=== PATIENT | female | born 1950 | race Two or more races ===

== ENCOUNTER 2019-12-17 18:31 | Inpatient (IN) | payer MEDICARE, BC ==
[~2019-12-17] VITALS: Ht 153.7 cm; Wt 74.8 kg
--- NOTE | 2019-12-17 19:17 | NUR ---
PT CAME TO ER BED 9 C/O FEVER. PT STATES THAT SHE HAS FEVER FOR OVER HALF A DAY. TEMPERATURE CHECKED AT 99.3. NATALYA PAVON NOTIFIED. AAOX4. NO SOB. BREATHING EVENLY AND UNLABORED ON ROOM AIR. CONNECTED TO MONITOR.
--- NOTE | 2019-12-17 19:18 | NUR ---
LIBRADO HOANG AT BEDSIDE FOR EVAL
--- NOTE | 2019-12-17 19:22 | NUR ---
RESEARCH CONTRACTS SUPERVISOR AT BEDSIDE FOR BLOOD DRAW
--- NOTE | 2019-12-17 19:22 | NUR ---
FLU SWAB SAMPLE TAKEN AND SENT TO LAB
--- NOTE | 2019-12-17 19:23 | NUR ---
URINE COLLECTED AND SENT TO LAB
[2019-12-17 19:26] LABS: BASOPHILS # (AUTO) 0.1 /CMM (0.0-0.2); BASOPHILS % (AUTO) 0.5 % (0.0-2.0); HEMATOCRIT 30 % (33-45); HEMOGLOBIN 9.4 g/dL (11.5-14.8); LYMPHOCYTES # (AUTO) 0.7 /CMM (0.8-4.8); MEAN CORPUSCULAR HGB CONC 31 g/dl (31.0-36.0); MEAN CORPUSCULAR VOLUME 79 fL (82-100); MONOCYTES # (AUTO) 1.5 /CMM (0.1-1.30); MONOCYTES % (AUTO) 9.2 % (2.0-12.0); NEUTROPHILS # (AUTO) 14.5 /CMM (1.8-8.9); NEUTROPHILS % (AUTO) 86.3 % (43.0-81.0); PLATELET COUNT (AUTO) 186 /CMM (150-450); WHITE BLOOD COUNT (AUTO) 16.8 K/uL (4.3-11.0)
[2019-12-17] MEDS ORDERED: ACETAMINOPHEN ES 500 MG TABLET ONE (19:27)
[2019-12-17] MEDS ORDERED: ACETAMINOPHEN ES 500 MG TABLET PO ONE (19:30)
[2019-12-17 19:37] LABS: CALCIUM, SERUM 9.4 mg/dL (8.5-10.1); CREATININE 1.9 mg/dL (0.6-1.3); POTASSIUM 4.4 mmol/L (3.5-5.1)
[2019-12-17 19:37] LABS: APPEARANCE,URINE Cloudy (CLEAR); BILIRUBIN,URINE Negative (NEGATIVE); BLOOD, URINE Large Ery/uL (NEGATIVE); COLOR,URINE Yellow (YELLOW); KETONES,URINE Negative (NEGATIVE); LEUKOCYTE ESTERASE ,URINE Large (NEGATIVE); NITRITE, URINE Positive (NEGATIVE); PROTEIN,URINE >=300 mg/dl (NEGATIVE); UGLUCOSE Negative (NEGATIVE); UROBILINOGEN,URINE 0.2 EU/dL (0.2)
[2019-12-17 19:42] LABS: ALBUMIN 3.5 g/dL (3.4-5.0); BILIRUBIN,DIRECT 0.2 mg/dL (0.0-0.2); BILIRUBIN,TOTAL 0.9 mg/dL (0.2-1.0); TOTAL PROTEIN, SERUM 7.6 g/dL (6.4-8.2)
[2019-12-17 19:50] LABS: BACTERIA,URINE 4+ /HPF (None Seen); RBC,URINE 51-80 /HPF (0-2); SQUAMOUS EPITHELIAL CELL,UR Few /HPF (None Seen); WBC,URINE TOO NUMEROUS TO COUN /HPF (0-3)
[2019-12-17] MEDS ORDERED: CEFTRIAXONE 1GM BAG (ER ONLY) 1 GM/50 ML PIGGYBACK IV ONE (20:00)
[2019-12-17] MEDS ORDERED: CEFTRIAXONE 1GM BAG (ER ONLY) 50 ML IV ONE (20:10)
--- NOTE | 2019-12-17 21:08 | NUR ---
CALLED FOR MS BED
--- NOTE | 2019-12-17 21:15 | NUR ---
RECIEVED BED 208-1
[2019-12-17] MEDS ORDERED: IV NS 0.9% 1,000 ML BAG IV ONE ×2 (21:30)
--- NOTE | 2019-12-17 21:35 | NUR ---
REPORT GIVEN TO ALBERT BUTTS FOR PRAKASH.
[2019-12-17 21:55] VITALS: BP 133/65
--- NOTE | 2019-12-17 21:55 | NUR ---
PATIENT CAME FROM ER ACCOMPANIED BY THE . PATIENT IS A/O X4. NO COMPLAIN OF PAIN. WITH OSTOMY BAG INTACT DRAINING TO A CLOUDY YELLOW URINE OUTPUT PATIENT EMPTIED THE BAG. V/S TAKEN BY COLIN ODONNELL AND RECORDED, AFEBRILE, VITALS STABLE. SKIN IS INTACT.
[2019-12-17] MEDS ORDERED: ONDANSETRON HCL/PF 4 MG/2 ML VIAL IVP PRN (22:00)
[2019-12-17] MEDS ORDERED: MORPHINE SULFATE INJ 2 MG/ML DISP.SYRIN IV PRN (22:00)
[2019-12-17] MEDS ORDERED: HYDROCODONE/APAP 5/325MG 1 EACH TABLET PO PRN (22:00)
[2019-12-17] MEDS ORDERED: VALS40TA12 PO (22:43)
[2019-12-18] MEDS: IV NS 0.9% 1,000 ML IV PRN ×2 (00:28→10:48)
--- NOTE | 2019-12-18 00:39 | NUR ---
PATIENT'S CONNECTED THE OSTOMY BAG TO THE URINARY BAG.
[2019-12-18 06:17] LABS: BASOPHILS # (AUTO) 0.1 /CMM (0.0-0.2); BASOPHILS % (AUTO) 0.4 % (0.0-2.0); EOSINOPHILS % (AUTO) 0.1 % (0.0-6.0); HEMATOCRIT 27 % (33-45); HEMOGLOBIN 8.6 g/dL (11.5-14.8); LYMPHOCYTES # (AUTO) 0.9 /CMM (0.8-4.8); LYMPHOCYTES % (AUTO) 5.2 % (20.0-44.0); MEAN CORPUSCULAR HGB CONC 32 g/dl (31.0-36.0); MEAN CORPUSCULAR VOLUME 78 fL (82-100); MONOCYTES # (AUTO) 1.7 /CMM (0.1-1.30); MONOCYTES % (AUTO) 9.5 % (2.0-12.0); NEUTROPHILS # (AUTO) 14.9 /CMM (1.8-8.9); NEUTROPHILS % (AUTO) 84.8 % (43.0-81.0); PLATELET COUNT (AUTO) 161 /CMM (150-450); RED BLOOD CELL COUNT(AUTO) 3.48 MIL/uL (4.0-5.2); WHITE BLOOD COUNT (AUTO) 17.6 K/uL (4.3-11.0)
[2019-12-18 06:38] LABS: CALCIUM, SERUM 8.7 mg/dL (8.5-10.1); CREATININE 1.7 mg/dL (0.6-1.3); MAGNESIUM 1.6 mg/dL (1.8-2.4); PHOSPHORUS 3.2 mg/dL (2.5-4.9); POTASSIUM 4.4 mmol/L (3.5-5.1)
--- NOTE | 2019-12-18 06:41 | NUR ---
MS RN CLOSING NOTES: PATIENT IS RESTING IN BED, A/O X4. NO COMPLAIN OF PAIN DURING SHIFT. NO SOB NOTED. VITALS STABLE. AFEBRILE. RESTED THROUGHOUT THE NIGHT. WITH UROSTOMY BAG CONNECTED TO THE URINE BAG INTACT. CALL LIGHT WITHIN REACH. BED IN LOWEST AND LOCKED POSITION.
[2019-12-18 06:55] LABS: THYROID STIMULATING HORMONE 3.214 uIU/mL (0.358-3.74)
--- NOTE | 2019-12-18 07:21 | NUR ---
MS RN OPENING NOTES RECEIVED PATIENT AWAKE IN BED IN NO ACUTE SIGNS OF DISTRESS. A/O X 4. ABLE TO MAKE NEEDS KNOWN, DENIES PAIN OR ANY DISCOMFORTS AT THIS TIME. ON ROOM AIR, BREATHING EVEN AND UN LABORED. IV ACCESS ON RIGHT LOWER LEG G #22 INTACT AND PATENT, IVF OF NS @ 100ML/HR INFUSING WELL, NO S/S OF INFILTRATIONS NOTED. UROSTOMY BAG IN PLACE WITH CLEAR YELLOW URINE DRAINING TO URINARY BAG AT BEDSIDE. CALL LIGHT WITHIN REACH. BED IN LOWEST AND LOCKED POSITION. WILL CONTINUE TO MONITOR
[2019-12-18] MEDS: PANTOPRAZOLE 40 MG TABLET.DR PO SCH (07:58)
[2019-12-18] MEDS: ACETAMINOPHEN 325 MG TABLET PO PRN (07:58)
[2019-12-18 08:00] VITALS: BP 161/57
--- NOTE | 2019-12-18 08:02 | NUR ---
RN NOTES PT NOTED WITH ELEVATED TEMP OF 102.7F, PRN TYLENOL 650MG PO GIVEN. COOLING MEASURES DONE. DR PRASAD ON UNIT WITH ORDERS TO COLLECT URINE FOR U/A AND BLOOD WORKS FOR TOMORROW. WILL CONTINUE TO MONITOR.
--- NOTE | 2019-12-18 10:26 | NUR ---
RN NOTES PT SEEN EARLIER BY PA OF DR NEWELL AND INFORMED HER REGARDING PT HAVING HIGH FEVER. DR NEWELL CAME TO UNIT AND SPOKE TO PT AND . MD EXPLAINED PLAN OF CARE AND CHANGED IV ATB TO MEROPENEM IV . WILL CONTINUE TO MONITOR.
[2019-12-18] MEDS ORDERED: MEROPENEM 1 G in IV NS 0.9% 100 ML IV SCH ×2 (10:30→10:46)
[2019-12-18] MEDS ORDERED: Magnesium 1GM/D5W 100ML PREMIX 100 ML IV SCH (10:36)
[2019-12-18] MEDS ORDERED: MEROPENEM 500 MG in IV NS 0.9% 50 ML IV ONE (11:00)
--- NOTE | 2019-12-18 11:21 | NUR ---
RN NOTES URINE SPECIMEN COLLECTED. CALLED LAB TO DISTRIBUTION OPERATIONS SUPERVISOR SPECIMEN.
[2019-12-18] MEDS ORDERED: MEPERIDINE HCL/PF 100 MG/ML DISP.SYRIN IV ONE (13:30)
[2019-12-18 14:08] LABS: CREATININE, URINE 41.9 MG/DL (30.0-125.0)
[2019-12-18 14:10] LABS: APPEARANCE,URINE SL CLOUDY (CLEAR); BILIRUBIN,URINE NEGATIVE (NEGATIVE); BLOOD, URINE MODERATE Ery/uL (NEGATIVE); COLOR,URINE YELLOW (YELLOW); KETONES,URINE NEGATIVE (NEGATIVE); LEUKOCYTE ESTERASE ,URINE MODERATE (NEGATIVE); NITRITE, URINE NEGATIVE (NEGATIVE); PROTEIN,URINE TRACE mg/dl (NEGATIVE); UGLUCOSE NEGATIVE (NEGATIVE); UROBILINOGEN,URINE 0.2 EU/dL (0.2)
--- NOTE | 2019-12-18 14:16 | NUR ---
RN NOTES PT WHEELED TO RADIOLOGY VIA WHEELCHAIR FOR CT BILATERAL PERCUTANEOUS NEPHROSTOMY.
[2019-12-18 14:38] LABS: BACTERIA,URINE 1+ /HPF (None Seen); RBC,URINE 21-50 /HPF (0-2); SQUAMOUS EPITHELIAL CELL,UR Moderate /HPF (None Seen); WBC,URINE 21-50 /HPF (0-3)
[2019-12-18] MEDS ORDERED: NALOXONE PREFILLED SYRINGE 2 MG/2 ML SYRINGE IV ONE (15:30)
[2019-12-18] MEDS ORDERED: MIDAZOLAM HCL 5MG/ML VIAL 25 MG/5 ML VIAL IV ONE (15:30)
[2019-12-18] MEDS ORDERED: FENTANYL PF 250MCG/5ML AMPUL IV ONE (15:30)
[2019-12-18] MEDS ORDERED: LIDOCAINE 1% INJ 50 ML MDV IJ ONE (16:30)
--- NOTE | 2019-12-18 17:57 | NUR ---
RN NOTES PT RETURNED AT [address] DEPT S/P PLACEMENT OF B/L NEPHROSTOMY TUBE9 RIGHT AND LEFT). RIGHT NOTED WITH PINKISH COLORED DRAINAGE AND LEFT WITH CLOUDY SEROUS DRAINAGE. V/S TAKEN: BP 140/52, P 84, R 18, T 99.2F AND SP02 96% ON ROOM AIR. PT C/O OF NAUSEA, DR NEWELL MADE AWARE WITH ORDER TO GIVE REGLAN 5MG/1ML IVP AND WAS ADMINISTERED. WILL CONTINUE TO MONITOR
[2019-12-18] MEDS ORDERED: METOCLOPRAMIDE HCL 10 MG/2 ML VIAL IV PRN (18:00)
[2019-12-18 18:24] LABS: EOSINOPHIL,URINE Rare
--- NOTE | 2019-12-18 19:07 | NUR ---
MS RN CLOSING NOTES PATIENT IN BED RESTING AT MODERATE HIGH BACKREST POSITION. A/O X 4. ABLE TO MAKE NEEDS KNOWN. ON ROOM AIR, TOLERATING WELL WITH NO SOB NOTED THROUGHOUT THE DAY. IV ACCESS ON RIGHT LOWER LEG G #22 AND LFA G#22 BOTH INTACT AND PATENT, IVF OF NS @ 100ML/HR INFUSING WELL TO RIGHT LOWER LEG, NO S/S OF INFILTRATIONS NOTED. UROSTOMY BAG IN PLACE WITH SLIGHTLY CLOUDY YELLOW URINE DRAINING TO URINARY BAG AT BEDSIDE. B/L NEPHROSTOMY TUBE IN PLACE AND NOW NOTED BOTH TUBES WITH PINKISH COLORED DRAINAGE. CALL LIGHT WITHIN REACH. BED IN LOWEST AND LOCKED POSITION. ALL NEEDS AND CARE ATTENDED WELL. WILL ENDORSE TO SUPERVISOR NET MAKING NURSE FOR PRAKASH
--- NOTE | 2019-12-18 20:08 | NUR ---
MS RN NOTES RECEIVED PATIENT AWAKE IN BED WITH NO DISTRESS NOTED. CALL LIGHT WITHIN REACH. NO C/O PAIN OR DISCOMFORT. PERIPHERAL LINES INTACT AND PATENT. UROSTOMY BAG IN PLACE. BILATERAL NEPHROSTOMY TUBES INTACT AND PATENT. ENCOURAGED USE OF CALL LIGHT FOR ASSISTANCE AND VERBALIZED GOOD UNDERSTANDING. BED IN LOW LOCK SETTING. ROOM FREE OF CLUTTER AND BELONGINGS KEPT NEAR BEDSIDE. WILL CONTINUE TO MONITOR
[2019-12-18 20:19] VITALS: BP 134/62
[2019-12-18] MEDS: TEMAZEPAM 15 MG CAPSULE PO PRN (21:19)
[2019-12-18] MEDS ORDERED: CEFTRIAXONE 1 G in IV D5W 50 ML IV SCH (22:00)
[2019-12-18] MEDS: MEROPENEM 500 MG in IV NS 0.9% 100 ML IV SCH (22:31)
[2019-12-19] MEDS: IV NS 0.9% 1,000 ML IV PRN (05:01)
[2019-12-19 06:29] LABS: BASOPHILS # (AUTO) 0.1 /CMM (0.0-0.2); BASOPHILS % (AUTO) 0.4 % (0.0-2.0); EOSINOPHILS % (AUTO) 0.7 % (0.0-6.0); HEMATOCRIT 23 % (33-45); HEMOGLOBIN 7.5 g/dL (11.5-14.8); LYMPHOCYTES # (AUTO) 0.7 /CMM (0.8-4.8); MEAN CORPUSCULAR HGB CONC 32 g/dl (31.0-36.0); MEAN CORPUSCULAR VOLUME 78 fL (82-100); MONOCYTES # (AUTO) 1.4 /CMM (0.1-1.30); MONOCYTES % (AUTO) 10.1 % (2.0-12.0); NEUTROPHILS # (AUTO) 11.5 /CMM (1.8-8.9); NEUTROPHILS % (AUTO) 83.8 % (43.0-81.0); PLATELET COUNT (AUTO) 140 /CMM (150-450); WHITE BLOOD COUNT (AUTO) 13.7 K/uL (4.3-11.0)
[2019-12-19 06:38] LABS: ALBUMIN 2.5 g/dL (3.4-5.0); BILIRUBIN,TOTAL 0.8 mg/dL (0.2-1.0); CALCIUM, SERUM 8.6 mg/dL (8.5-10.1); CREATININE 1.7 mg/dL (0.6-1.3); MAGNESIUM 1.6 mg/dL (1.8-2.4); PHOSPHORUS 2.9 mg/dL (2.5-4.9); POTASSIUM 3.7 mmol/L (3.5-5.1); TOTAL PROTEIN, SERUM 6.2 g/dL (6.4-8.2)
--- NOTE | 2019-12-19 06:46 | NUR ---
MS RN NOTES PATIENT ASLEEP IN BED WITH NO DISTRESS NOTED. CALL LIGHT WITHIN REACH. NO C/O PAIN OR DISCOMFORT. ALL DUE MEDS GIVEN ORDERED WITH NO ASE. PERIPHERAL LINES INTACT AND PATENT. UROSTOMY BAG IN PLACE. BILATERAL NEPHROSTOMY TUBES INTACT AND PATENT. LEFT TUBE DRAINED 500ML YELLOW CLEAR URINE, RIGHT TUBE DRAINED 800ML YELLOW CLEAR URINE. BED IN LOW LOCK SETTING. ROOM FREE OF CLUTTER AND BELONGINGS KEPT NEAR BEDSIDE. WILL ENDORSE TO ONCOMING SHIFT.
[2019-12-19 08:00] VITALS: BP 129/63
--- NOTE | 2019-12-19 08:00 | NUR ---
MS RN NOTES PATIENT IN BED RESTING NO SOB OR ACUTE DISTRESS NOTED. PERIPHERAL IV INTACT PATENT. NEPHROSTOMY TUBES INTACT PATENT. DRAINING CLEAR URINE. BED IN LOW LOCKED POSITION. CALL LIGHT WITHIN REACH. WILL CONTINUE TO MONITOR.
[2019-12-19] MEDS: PANTOPRAZOLE 40 MG TABLET.DR PO SCH (08:13)
[2019-12-19] MEDS ORDERED: Magnesium 1GM/D5W 100ML PREMIX 100 ML IV SCH (08:21)
[2019-12-19] MEDS: MEROPENEM 500 MG in IV NS 0.9% 100 ML IV SCH ×2 (11:29→23:07)
[2019-12-19] MEDS: SOD FERRIC GLUC 125 MG in IV NS 0.9% 100 ML IV SCH (14:22)
[2019-12-19 16:00] VITALS: BP 123/57
[2019-12-19] MEDS: ACETAMINOPHEN 325 MG TABLET PO PRN (17:16)
[2019-12-19] MEDS ORDERED: TEMA15CA5 PO (17:54)
[2019-12-19] MEDS ORDERED: SOD62.5V IV (17:54)
[2019-12-19] MEDS ORDERED: METO5VIA6 IV (17:54)
[2019-12-19] MEDS ORDERED: HYDR-3972 PO (17:54)
[2019-12-19] MEDS ORDERED: MERO500P IV (17:54)
--- NOTE | 2019-12-19 19:00 | NUR ---
RN MS OPENING NOTES RECEIVED PATIENT IN BED AWAKE ALERT AND ORIENTED X4, RESPIRATIONS EVEN AND UNLABORED WITH EQUAL RISE AND FALL OF CHEST, DENIES ANY PAIN OR DISCOMFORT AT THIS TIME, RIGHT AND LEFT NEPHROSTOMY SITES INTACT AND DRAINING YELLOW URINE, UROSTOMY ALSO INTACT. IV SITE TO RIGTH FA #20 G INTACT AND PATENT, NO REDNESS, NO INFILTRATION PRESENT, IVF RUNNING ORDERED,SAFETY PRECAUTIONS RENDERED, ALL NEEDS ATTENDED AT THIS TIME, ORIENTED TO STAFF AND CALL LIGHT AND KEPT WITHIN REACH, WILL CONTINUE TO MONITOR.
--- NOTE | 2019-12-19 19:28 | NUR ---
MS RN NOTES PATIENT IN BED RESTING NO SOB OR ACUTE DISTRESS NOTED. PATIENT ALERT, ORIENTED X3. NO ACUTE CHANGES NOTED DURING SHIFT. ALL DUE MEDICATIONS ADMINISTERED. ALL NEEDS MET. ENDORSED CARE TO PM SHIFT.
[2019-12-19 20:00] VITALS: BP 134/69
[2019-12-19] MEDS: TEMAZEPAM 15 MG CAPSULE PO PRN (21:14)
--- NOTE | 2019-12-19 21:14 | NUR ---
RN MS NOTES PATIENT REQUESTED FOR SLEEP MEDICATION, RESTORIL PRN OFFERED PATIENT AGREED AND GIVEN , ALL NEEDS ATTENDED WILL CONTINUE TO MONITOR.
[2019-12-20] MEDS: IV NS 0.9% 1,000 ML IV PRN (02:48)
--- NOTE | 2019-12-20 06:16 | NUR ---
left nephrostomy 400 right nephrostomy 600 Addendum: 12/20/19 at 0618 by LOU WALL RN Amended: Links added.
--- NOTE | 2019-12-20 06:49 | NUR ---
RN MS CLOSING NOTES PATIENT IN BED AWAKE ALERT AND ORIENTED X4, RESPIRATIONS EVEN AND UNLABORED WITH EQUAL RISE AND FALL OF CHEST, DENIES ANY PAIN OR DISCOMFORT AT THIS TIME, RIGHT AND LEFT NEPHROSTOMY SITES INTACT AND DRAINING YELLOW URINE, UROSTOMY ALSO INTACT TOTAL OUTPUT 900ML. IV SITE TO RIGHT FA #20 G INTACT AND PATENT, NO REDNESS, NO INFILTRATION PRESENT, IVF RUNNING ORDERED,SAFETY PRECAUTIONS RENDERED, ALL NEEDS ATTENDED AT THIS TIME, CALL LIGHT KEPT WITHIN REACH, WILL CONTINUE TO MONITOR AND ENDORSE TO NEXT SHIFT. FLUIDS OFFERED, LINEN CHANGE AND BED BATH OFFERED PATIENT DID NOT AT THIS TIME, RESTORIL WAS EFFECTIVE PATIENT SLEPT WELL, ALL DUE MEDICATIONS GIVEN ORDERED, NO ASE. REMAINS COMFORTABLE.
[2019-12-20] MEDS: PANTOPRAZOLE 40 MG TABLET.DR PO SCH (07:30)
[2019-12-20 07:38] LABS: BASOPHILS % (AUTO) 0.5 % (0.0-2.0); EOSINOPHILS % (AUTO) 4.5 % (0.0-6.0); HEMATOCRIT 24 % (33-45); HEMOGLOBIN 7.8 g/dL (11.5-14.8); LYMPHOCYTES # (AUTO) 0.7 /CMM (0.8-4.8); LYMPHOCYTES % (AUTO) 7.1 % (20.0-44.0); MEAN CORPUSCULAR HGB CONC 33 g/dl (31.0-36.0); MEAN CORPUSCULAR VOLUME 78 fL (82-100); MONOCYTES # (AUTO) 0.8 /CMM (0.1-1.30); MONOCYTES % (AUTO) 8.6 % (2.0-12.0); NEUTROPHILS # (AUTO) 7.4 /CMM (1.8-8.9); NEUTROPHILS % (AUTO) 79.3 % (43.0-81.0); PLATELET COUNT (AUTO) 159 /CMM (150-450); WHITE BLOOD COUNT (AUTO) 9.3 K/uL (4.3-11.0)
[2019-12-20 07:57] LABS: ALBUMIN 2.4 g/dL (3.4-5.0); BILIRUBIN,TOTAL 0.4 mg/dL (0.2-1.0); CALCIUM, SERUM 8.7 mg/dL (8.5-10.1); CREATININE 1.6 mg/dL (0.6-1.3); MAGNESIUM 1.8 mg/dL (1.8-2.4); PHOSPHORUS 2.9 mg/dL (2.5-4.9); POTASSIUM 3.7 mmol/L (3.5-5.1); TOTAL PROTEIN, SERUM 6.3 g/dL (6.4-8.2)
[2019-12-20 08:00] VITALS: BP 138/71
--- NOTE | 2019-12-20 08:00 | NUR ---
RN NOTES RECEIVED PATIENT IN THE BED A/O X3, POLISH SPEAKER, NO ACUTE RESPIRATORY DISTRESS, V/S STABLE, PATIENT REFUSED PROTONIX SCHEDULED AM. INFUSING NS AT 100 ML/HR ON RIGHT HAND INTACT. PATIENT HAS A LEFT AND RIGHT NEPHROSTOMY BAG INTACT WITH LIGHT YELLOW DRAINAGE, ALS HAS A RIGHT SIDE UROSTOMY LIGHT YELLOW OUTPUT. PATIENT COOPERATIVE REFUSED PAIN, NEEDS ATTENDED AND ANTICIPATED, NEXT TO THE BED. CALL LIGHT WITHIN TO REACH.
[2019-12-20] MEDS: MEROPENEM 500 MG in IV NS 0.9% 100 ML IV SCH (13:35)
--- NOTE | 2019-12-20 14:00 | NUR ---
RN NOTES PATIENT STABLE, REFUSED PAIN, ASSIST TO THE BATHROOM WITH ASSIST, LEFT AND RIGHT NEPHROSTOMY TUBES INTACT DRAINING LIGHT YELLOW OUTPUT. NEXT TO THE BED. LUCIEN LIGHT WITHIN TO REACH.
[2019-12-20] MEDS: SOD FERRIC GLUC 125 MG in IV NS 0.9% 100 ML IV SCH (14:27)
[2019-12-20 16:00] VITALS: BP 131/68
--- NOTE | 2019-12-20 16:05 | NUR ---
rn notes received call from [facility] admitting, will admit patient today after couple of discharge, and they will call back for patient pick up driver.
--- NOTE | 2019-12-20 19:30 | NUR ---
BRASS WIND INSTRUMENT MAKER NOTES PATIENT DISCHARGE AT THIS TIME TRANSFERRING [facility] FOLLOW UP. PATIENT STABLE, REFUSED PAIN, LEFT FA IV ACCESS INTACT, NO ACUTE RESPIRATORY DISTRESS, REFUSED PAIN. REPORT GIVEN BECKIE HUDSON. RN VERBALIZED UNDERSTANDING. PATIENT SIGN PAPERWORK . BELONGING WITH THE PATIENT. NEXT TO THE BED. PATIENT QM CONSULTANT BY AMBULANCE.
[2019-12-20 20:24] VITALS: BP 152/82
[2019-12-21 07:11] LABS: PTH, INTACT 32 pg/mL (15-65)
[2019-12-22 15:14] LABS: *SPE A/G RATIO 0.8 (0.7-1.7); *SPE ALBUMIN 2.5 g/dL (2.9-4.4); *SPE ALPHA-1-GLOBULIN 0.5 g/dL (0.0-0.4); *SPE ALPHA-2-GLOBULIN 0.8 g/dL (0.4-1.0); *SPE BETA GLOBULIN 0.8 g/dL (0.7-1.3); *SPE M-SPIKE Not Observed g/dL (Not Observed); *SPEGAMMA GLOBULIN 0.9 g/dL (0.4-1.8)
== END 2019-12-20 19:35 | disposition short-term general hospital (02) | DRG 871 ==
LOC: ER 18:33 → MEDSG2 21:18
PROVIDERS: ADMIT Nurse Practitioner Acute Care; ATTEND Nurse Practitioner Acute Care
DX: A41.50 Gram-negative sepsis, unspecified (principal); N17.0 Acute kidney failure with tubular necrosis; E87.1 Hypo-osmolality and hyponatremia; N10 Acute pyelonephritis; N13.6 Pyonephrosis; Z85.51 Personal history of malignant neoplasm of bladder; Z85.048 Personal history of other malignant neoplasm of rectum, rectosigmoid junction, and anus; Z90.6 Acquired absence of other parts of urinary tract; Z92.21 Personal history of antineoplastic chemotherapy; Z92.3 Personal history of irradiation; D64.9 Anemia, unspecified; F12.90 Cannabis use, unspecified, uncomplicated; D50.9 Iron deficiency anemia, unspecified; I10 Essential (primary) hypertension
CPT/HCPCS: 36415; 75989; 75989-TC; 76770-TC; 80048-TC; 80053-TC; 80061-TC; 80076-TC; 81000-TC; 82550-TC; 82570-TC; 82728-TC; 83540-TC; 83605-TC; 83690-TC; 83735-TC; 83970; 84100-TC; 84155; 84155-TC; 84165; 84300-TC; 84443-TC; 85025-TC; 85610-TC; 87040-TC; 87081-TC; 87086-TC; A4215; A4216; G0378; J0696; J2175; J2185; J2250; J2310; J2765; J2916; J3010; J3475; J3490; J7030; J7050; J7060

== ENCOUNTER 2023-01-14 20:12 | Emergency (ER) | payer MEDICARE, BC ==
[~2023-01-14] VITALS: Ht 167.6 cm; Wt 81.6 kg
[~2023-01-14 20:12] MED LIST: HYDR-3972 PO; MERO500P IV; METO5VIA6 IV; SOD62.5V IV; TEMA15CA5 PO; VALS40TA12 PO
--- NOTE | 2023-01-14 20:50 | NUR ---
BIB FOR HIGH BP AND DIZZINESS. TOOK A DOSE OF CAPTOPRIL AT HOME WITH NO EFFECT. -CP, -SOB, -N/V. PATIENT IS CALM, AAOX4. ABLE TO MAKE NEEDS KNOWN. AMBULATORY. PLACED COMFORTABLY IN BED. VITALS CHECKED.
--- NOTE | 2023-01-14 21:00 | NUR ---
EKG DONE, STRIP ATTACHED TO CHART.
--- NOTE | 2023-01-14 21:03 | NUR ---
ATTACHED TO SIGNAL TOWER DIRECTOR.
--- NOTE | 2023-01-14 21:23 | NUR ---
BROUGHT TO CT DEPT
--- NOTE | 2023-01-14 21:25 | NUR ---
IV IAN G20 INSERTED ON RIGHT HAND. BLOOD DRAWN AND SENT TO LAB
[2023-01-14] MEDS ORDERED: hydrALAZINE HCL IV 20 MG VIAL ONE (21:26)
[2023-01-14 21:30] LABS: BASOPHILS % (AUTO) 0.5 % (0.0-2.0); EOSINOPHILS % (AUTO) 2.3 % (0.0-6.0); HEMATOCRIT 44 % (33-45); HEMOGLOBIN 13.5 g/dL (11.5-14.8); LYMPHOCYTES % (AUTO) 12.8 % (20.0-44.0); MEAN CORPUSCULAR HGB CONC 31 g/dl (31.0-36.0); MEAN CORPUSCULAR VOLUME 86 fL (82-100); MONOCYTES # (AUTO) 0.5 K/uL (0.1-1.30); MONOCYTES % (AUTO) 6.4 % (2.0-12.0); NEUTROPHILS # (AUTO) 6.2 K/uL (1.8-8.9); PLATELET COUNT (AUTO) 208 K/uL (150-450); RED BLOOD CELL COUNT(AUTO) 5.13 MIL/uL (4.0-5.2); WHITE BLOOD COUNT (AUTO) 7.9 K/uL (4.3-11.0)
[2023-01-14] MEDS: hydrALAZINE HCL IV 20 MG VIAL IV ONE (21:37)
[2023-01-14 21:43] LABS: CALCIUM, SERUM 9.5 mg/dL (8.5-10.1); CARBON DIOXIDE 26 mmol/L (21-32); CHLORIDE 103 mmol/L (98-107); CREATININE 1.6 mg/dL (0.6-1.3); GLUCOSE 116 mg/dL (74-106); POTASSIUM 3.6 mmol/L (3.5-5.1); SODIUM SERUM 137 mmol/L (136-145); UREA NITROGEN, BLOOD 27 mg/dL (7-18)
--- NOTE | 2023-01-14 21:46 | NUR ---
CAME BACK FROM CT DEPT
[2023-01-14] MEDS ORDERED: AMLO10TA4 PO (22:23)
--- NOTE | 2023-01-14 22:41 | NUR ---
IV IAN REMOVED.
--- NOTE | 2023-01-14 22:45 | NUR ---
Patient discharged to home in stable condition. Written and verbal after care instructions given. Patient verbalizes understanding of instruction.
[2023-01-14 22:47] VITALS: BP 148/74
== END 2023-01-14 22:48 | disposition home or self-care (01) ==
LOC: ER 20:18
DX: I10 Essential (primary) hypertension (principal); R42 Dizziness and giddiness; Z85.048 Personal history of other malignant neoplasm of rectum, rectosigmoid junction, and anus; Z98.890 Other specified postprocedural states; Z79.899 Other long term (current) drug therapy
CPT/HCPCS: 36415; 70450-TC; 71045-TC; 80048-TC; 84484-TC; 85025-TC; J0360